=== PATIENT | female | born 1970 | race American Indian/Alaskan Native ===

== ENCOUNTER 2017-06-20 05:50 | Day surgery (SDC) | payer OTHER ==
[~2017-06-20 05:50] MED LIST: MARCAINE 0.25% INFILTRATI ONE
[2017-06-20] MEDS ORDERED: NACL BACTERIOSTATIC INFILTRATI ONE (06:42)
--- NOTE | 2017-06-20 07:10 | Anesthesia Day of Surgery ---
Anesthesia Day of Surgery - Day of Surgery Patient Examined: Yes Patient H&P Reviewed: Yes Patient is NPO: Yes
--- NOTE | 2017-06-20 07:10 | Anesthesia Consultation ---
Anesthesia Consult and Med Hx Date of service: 06/20/17 - Airway Anesthetic Teeth Evaluation: Poor ROM Head & Neck: Adequate Mental/Hyoid Distance: Adequate Mallampati Class: Class II Intubation Access Assessment: Probably Good - Pulmonary Exam CTA: Yes - Cardiac Exam Cardiac Exam: RRR - Pre-Operative Health Status ASA Pre-Surgery Classification: ASA2 Proposed Anesthetic Plan: General - Pulmonary Hx Smoking: No Hx Sleep Apnea: No (EDUARDA PRE SCREEN HIGH RISK.) - Cardiovascular System Hx Hypertension: No - Endocrine Hx Non-Insulin Dependent Diabetes: Yes - Other Systems Hx Cancer: No Hx Obesity: Yes
[2017-06-20] MEDS ORDERED: MARCAINE 0.25% INFILTRATI ONE ×3 (07:21→08:40)
[2017-06-20] MEDS ORDERED: SUBLIMAZE ONE (07:29)
[2017-06-20] MEDS ORDERED: DIPRIVAN 10 MG/ML IV ONE ×2 (07:29→08:23)
[2017-06-20] MEDS ORDERED: XYLOCAINE MPF 2% ONE (07:30)
[2017-06-20] MEDS ORDERED: PEPCID PO NR (08:00)
[2017-06-20] MEDS ORDERED: VERSED IV NR (08:00)
[2017-06-20] MEDS ORDERED: NACL 0.9% 1000 ML 1,000 ML IV SCH (08:00)
[2017-06-20] MEDS ORDERED: ANCEF/STERILE WATER 2 GM/20 ML IV NR (08:00)
[2017-06-20] MEDS ORDERED: ZOFRAN ONE ×2 (08:04→09:54)
[2017-06-20] MEDS ORDERED: DECADRON ONE (08:04)
[2017-06-20] MEDS ORDERED: ROBINUL ONE (08:25)
[2017-06-20] MEDS ORDERED: BREVIBLOC IV ONE (08:27)
--- NOTE | 2017-06-20 09:01 | Short Stay Summary ---
Short Stay Documentation - Allergies and Medications Current Medications: Allergies Sulfa (Sulfonamide Antibiotics) Allergy (Intermediate, Verified 06/11/17 12:12) Rash itching Home Medications Medication Instructions Recorded Confirmed Last Taken Type Ferrous Sulfate [Feosol] 325 mg PO QDAY 06/12/17 06/20/17 06/19/17 History Omeprazole Magnesium [PriLOSEC Otc] 20 mg PO QDAY 06/12/17 06/20/17 06/19/17 History metFORMIN [Glucophage] 500 mg PO QDAY 06/12/17 06/20/17 06/17/17 History Active Medications Cefazolin Sodium (Ancef/Sterile Water 2 Gm/20 Ml) 2 gm IV PREOP NR Stop: 06/20/17 15:00 Famotidine (Pepcid) 20 mg PO PREOP NR Stop: 06/20/17 15:00 Last Admin: 06/20/17 07:26 Dose: 20 mg Sodium Chloride (Nacl 0.9% 1000 Ml) 1,000 mls @ 100 mls/hr IV DIRECT KULDEEP Last Admin: 06/20/17 07:27 Dose: 100 mls/hr Midazolam HCl (Versed) 2 mg IV PREOP NR Stop: 06/20/17 23:59 Last Admin: 06/20/17 07:29 Dose: 2 mg Short Stay Discharge Plan Activity: advance as tolerated Weight Bearing Status: Non-Weight Bearing Diet: regular Wound: keep clean and dry, per your surgeon's advice Special Instructions: other Additional Instructions: follow instruction sheet. Follow up with: TESS CELESTE MD [Primary Care Provider] - 7 Days JESSY BAL MD [Staff Physician] - 14 Days
--- NOTE | 2017-06-20 09:26 | Post Anesthesia Evaluation ---
- Post Anesthesia Evaluation Patient Participated: Yes Airway Patent: Yes Stable Respiratory Function: Yes Nausea/Vomiting: No Temp > 96.8F: Yes Pain Manageable: Yes Adequeate Hydration: Yes Anesthesia Complications: No
[2017-06-20] MEDS ORDERED: DILAUDID IV PRN (09:33)
[2017-06-20] MEDS ORDERED: ZOFRAN IV PRN (09:33)
[2017-06-20] MEDS ORDERED: DILAUDID ONE (09:42)
[2017-06-20] MEDS ORDERED: NORCO 5/325 PO PRN (10:00)
[2017-06-20] MEDS ORDERED: NACL 0.9% 1000 ML 1,000 ML ONE (10:40)
--- NOTE | 2017-06-20 13:39 | Operative Report ---
SURGEON: Shaheen Gomes MD RETAIL INTERIOR DESIGNER: ____. COMPLICATIONS: None. PREOPERATIVE DIAGNOSES: Severe carpal tunnel syndrome, right side. POSTOPERATIVE DIAGNOSES: Severe carpal tunnel syndrome, right side. PROCEDURES PERFORMED: Mini open carpal tunnel release, right side. BLOOD LOSS: Minimal. ANESTHESIA: General as per anesthesia discussion. BRIEF HISTORY: The patient is a 46-year-old lady, had moderate to severe carpal tunnel syndrome with tingling and numbness in the median nerve distribution, failed conservative treatment, opted to undergo surgical intervention. Risks and benefits discussed, informed consent obtained, brought to the hospital for the above procedure. DETAILS OF THE OPERATIVE REPORT: The patient was taken to the operative room, smooth anesthesia, all the bony prominences carefully padded. Right arm and right upper extremity prepped on the ____ table. High arm tourniquet was placed. Right arm and right upper extremity prepped and draped in sterile fashion. Esmarch used and tourniquet inflated to 250 mmHg. Antibiotic given half an hour before the procedure. A longitudinal incision made about 4 cm to 5 cm max proximal to the Rodriguez's line and distal to the wrist crease and in line with the radial border of the ring finger. Incision was carried down deep to subcutaneous tissue and a palmar fascia was identified. It was very thickened palmar fascia. Retractors were placed on medial and lateral side and a palmar fascia was bluntly dissected to the point, we reach the flexor retinaculum. The distal end of it was identified. Сергей was made in the center of the flexor retinaculum and Covel was placed underneath and using sternotomy scissors the complete release of the flexor retinaculum was performed from distal to proximal extending including the distal forearm fascia. We could see the median notch through the median nerve revived. Extremely thick flexor retinaculum was noticed. Good release was confirmed and complete release was done. Washing was done with normal saline. Once we were satisfied with the release, closure was commenced with 2-0 nylon interrupted sutures in a horizontal mattress fashion. Dressing was done with 3 mL of 0.25% plain injected into the incision site. Dressing was done with Xeroform, 4 x 4, Kerlix, [place] wrap and wrist brace was applied. The patient tolerated the procedure well, shifted to recovery room in stable condition. Sponge and needle count was correct. Tourniquet was released at the end of the procedure, good cap refill, in the PACU, the patient moved her fingers and thumb properly. JOB# [id number] SANYA/LETI
[2017-06-20 17:35] VITALS: BP 122/64
== END 2017-06-20 11:21 | disposition home or self-care (01) ==
LOC: OR 05:50
PROVIDERS: ATTEND Orthopaedic Surgery
DX: G56.01 Carpal tunnel syndrome, right upper limb (principal); Z88.2 Allergy status to sulfonamides; E11.9 Type 2 diabetes mellitus without complications; E66.9 Obesity, unspecified
CPT/HCPCS: 64721; 82962; J0690; J1100; J1170; J2250; J2405; J2704; J3010; J7030